=== PATIENT | female | born 1990 | race Hispanic/Latino ===

== ENCOUNTER 2019-10-04 14:07 | Emergency (ER) | payer OTHER | END 2019-10-04 15:02 | disposition home or self-care (01) | LOC: EDH 14:07 | DX: J12.89 Other viral pneumonia (principal); J45.909 Unspecified asthma, uncomplicated; Z20.828 Contact with and (suspected) exposure to other viral communicable diseases; Z98.890 Other specified postprocedural states | CPT/HCPCS: 36415; 71045; 99284; U0003 ==